=== PATIENT | male | born 2000 | race Hispanic/Latino ===

== ENCOUNTER 2022-12-14 18:50 | Emergency (ER) | payer SELFPAY ==
[~2022-12-14] VITALS: Ht 167.6 cm; Wt 50.0 kg
[2022-12-14] MEDS ORDERED: KEFLEX500 MG PO (19:54)
[2022-12-14 20:10] VITALS: BP 127/81
== END 2022-12-14 20:10 | disposition home or self-care (01) | DRG 605 ==
LOC: ED 18:50
PROC: 0HQFXZZ Repair Right Hand Skin, External Approach (ICD-10-PCS; principal; 2022-12-14)
DX: S61.411A Laceration without foreign body of right hand, initial encounter (principal); W25.XXXA Contact with sharp glass, initial encounter; Y93.89 Activity, other specified; Y92.009 Unspecified place in unspecified non-institutional (private) residence as the place of occurrence of the external cause

== ENCOUNTER 2022-12-21 21:11 | Emergency (ER) | payer SELFPAY ==
[~2022-12-21] VITALS: Ht 167.6 cm; Wt 50.4 kg
[~2022-12-21 21:11] MED LIST: KEFLEX500 MG PO
[2022-12-21 21:21] VITALS: BP 149/82
== END 2022-12-21 21:40 | disposition home or self-care (01) | DRG 950 ==
LOC: ED 21:11
DX: S61.411D Laceration without foreign body of right hand, subsequent encounter (principal); X58.XXXD Exposure to other specified factors, subsequent encounter

== ENCOUNTER 2024-04-03 22:11 | Emergency (ER) | payer SELFPAY ==
[~2024-04-03] VITALS: Ht 167.6 cm; Wt 61.0 kg
[2024-04-04] MEDS ORDERED: SULFAMETHOXAZOLE W/TRIMETHOPRI 1 COMBO TAB PO ONE (00:55)
[2024-04-04] MEDS ORDERED: BACTRIM DS1 TAB PO (01:00)
[2024-04-04] MEDS ORDERED: BACTROBAN TOP (01:00)
[2024-04-04 01:28] VITALS: BP 121/73
== END 2024-04-04 01:28 | disposition home or self-care (01) | DRG 607 ==
LOC: ED 22:11
DX: L73.2 Hidradenitis suppurativa (principal)